=== PATIENT | male | born 1970 | race Caucasian/White ===

== ENCOUNTER 2016-04-11 01:04 | Emergency (ER) | payer SELFPAY ==
[2016-04-11 01:13] VITALS: TEMP 98.3; BMI 27.0
[2016-04-11] MEDS ORDERED: NS 1,000 ML IV ONE (01:17)
[2016-04-11] MEDS ORDERED: DEXTROSE 25 GM/50 ML PFS IV PRN (01:17)
[2016-04-11] MEDS ORDERED: GLUCAGON 1 MG VIAL SQ PRN (01:17)
[2016-04-11] MEDS ORDERED: GLUCOSE (ORAL GEL) 15 GM TUBE PO PRN (01:17)
--- NOTE | 2016-04-11 01:22 | EDPRACDOC ---
- General Information Chief Complaint: Chest Pain Stated Complaint: CHEST PAIN Time Seen by Provider: 04/11/16 01:07 Information Source: Patient Mode of Arrival: Ambulance Home Medications: Home Medications No Home Medications 04/11/16 Allergies/Adverse Reactions: Allergies Allergy/AdvReac Type Severity Reaction Status Date / Time No Known Allergies Allergy Verified 04/11/16 02:18 - History of Present Illness Onset: 1.5 weeks ago Chest Wall Injury Location: Reports: Front Context: Reports: Fall Pain Quality: Reports: Sharp Pain Severity: Reports: Moderate Pain Worsens With: Reports: Nothing Shortness of Breath: Mild Associated Signs and Symptoms: Reports: Other (shoulder injury). Denies: Abrasion, Laceration, Abdominal Pain Other History: pt is heavily intoxicated. ED Past Medical History - History Reviewed Yes Nurses notes reviewed and agree except as marked - Patient Medical History Cardiac History: Reports: Hypertension Respiratory History: Reports: COPD Psychological History: Denies: Depression Systemic History: Reports: Diabetes - Social Medical History Smoking Status: Heavy tobacco smoker (5 or more cigarettes/day or daily pipe/ cigar) EDM Review of Systems - Review of Systems ROS Unobtainable: Yes Review of systems cannot be obtained due to the patient's medical condition (intoxication) - Physical Exam Constitutional: Decreased Consciousness, ETOH Oriented to: Person Last recorded Vital Signs: Last Vital Signs Temp 98.3 F 04/11/16 01:09 Pulse 114 04/11/16 01:14 Resp 20 04/11/16 01:14 BP 120/70 04/11/16 01:09 Pulse Ox 92 04/11/16 01:13 Oxygen Pulse Oxygen Saturation 92 O2 Device Nasal Cannula Oxygen Flow Rate 2 Fraction of Inspired Oxygen ( FIO2) - HEENT Head: Normal. negative: Abrasion, Deformity, Laceration Eye Exam: Normal TMJ: Normal Nose: No Symptoms Reported Neck: negative: Bony Tenderness, Crepitus, In Collar, Step off - Respiratory/Cardiovascular Respiratory: Normal - CTA Cardiovascular: Tachycardia - GI Auscultation: Normal Palpation: Normal Tenderness: Non tender - Musculoskeletal Back: negative: Thoracic Step-off, Lumbar Step-off, No Palpable Step-off Extremities: Radial Pulse (nl), Other (no exts deformity) - Integumentary Skin: Warm, Dry - Neurologic Motor Function: Normal Cranial Nerve: Normal Mood Description: Flat Thought: negative: Delusions, Paranoia - Re-evaluation Re-evaluation 1 Re-evaluation Time: 03:20 (trp is neg as is ct chest. pt has cp assoc w fall. strongly doubt acs.) Re-evaluation 2 Re-evaluation Time: 03:24 (pt awakens easily to voice stimuli. has slurred speech.) Re-evaluation 3 Re-evaluation Time: 06:18 (pt still has slurred speech, but will be given safe ride home via police.) - Results 04/11/16 01:20 04/11/16 01:20 - EKG EKG #1 -: Yes EKG interpreted by me [place]: LAD Rhythm: ST Block: None ST: Normal - Diagnostic Imaging Chest Image interpreted by: Radiologist (cxr and cta chest neg for pe, aorta dissection.no ptx.) Shoulder Image interpreted by: Radiologist (neg) Decision Time to Discharge: 06:18 - Departure Yes I personally saw and evaluated the patient. Disposition: Home Condition: Stable Final Diagnosis: Contusion, shoulder /upper arm, Alcohol intoxication Contusion, chest wall Qualifiers: Encounter type: initial encounter Laterality: unspecified laterality Qualified Code(s): S20.219A - Contusion of unspecified front wall of thorax, initial encounter Instructions: Chest Wall Pain, Chest Pain (ED), Contusion in Adults (ED), Rib Contusion (ED), Alcohol Intoxication (ED) Education/Counseling Given To: Patient Education/Counseling Given Regarding: Diagnosis, Treatment, Follow Up Referrals: None,No Provider [Primary Care Provider] - One Week Chirag Rahman MD [Staff Physician] - Call for Appointment (make the first available appointment.)
[2016-04-11 01:33] LABS: AUTOMATED BASOPHIL 1.4 % (0-2); AUTOMATED EOSINOPHIL 1.1 % (0-5); AUTOMATED LYMPH 24.9 % (17-44); AUTOMATED MONOCYTE 11.6 % (3-10); MPV 7.6 fL (7.4-10.4)
[2016-04-11 01:41] LABS: PARTIAL THROMB. TIME 22.9 SEC (22-35)
[2016-04-11 01:42] LABS: BLOOD UREA NITROGEN 3 MG/DL (9-20); CALCIUM 8.7 MG/DL (8.4-10.2); CALCULATED OSMOLALITY 265 MOs/Kg (270-290); CHLORIDE 98 mEq/L (98-107); GLUCOSE 102 MG/DL (70-99); SODIUM LEVEL 139 mEq/L (137-146); TOTAL PROTEIN 8.1 G/DL (6.3-8.2)
--- NOTE | 2016-04-11 01:47 | DIRPT ---
CLINICAL DATA: Chest pain. EXAM: CHEST 2 VIEW COMPARISON: 03/28/2010 FINDINGS: The cardiomediastinal contours are normal. The lungs are clear. Pulmonary vasculature is normal. No consolidation, pleural effusion, or pneumothorax. No acute osseous abnormalities are seen. IMPRESSION: No acute pulmonary process. Electronically Signed By: Ivanna Ceja M.D. On: 04/11/2016 01:44
--- NOTE | 2016-04-11 01:48 | DIRPT ---
CLINICAL DATA: Status post fall several days ago, with right shoulder pain. Initial encounter. EXAM: RIGHT SHOULDER - 2+ VIEW COMPARISON: Chest radiograph performed 01/26/2010 FINDINGS: There is no evidence of fracture or dislocation. The right humeral head is seated within the glenoid fossa. The acromioclavicular joint is unremarkable in appearance. No significant soft tissue abnormalities are seen. The visualized portions of the right lung are clear. IMPRESSION: No evidence of fracture or dislocation. Electronically Signed By: Matt Rai M.D. On: 04/11/2016 01:45
[2016-04-11] MEDS ORDERED: THIAMINE 100 MG in NS 100 ML IV ONE (02:00)
[2016-04-11] MEDS ORDERED: Pharmacy Review for Metformin - IV Contrast Given SCH (02:00)
--- NOTE | 2016-04-11 02:27 | DIRPT ---
CLINICAL DATA: Mid chest pain and shortness of breath. Back pain tonight. History recent fall. Hypoxia. EXAM: CT ANGIOGRAPHY CHEST WITH CONTRAST TECHNIQUE: Multidetector CT imaging of the chest was performed using the standard protocol during bolus administration of intravenous contrast. Multiplanar CT image reconstructions and MIPs were obtained to evaluate the vascular anatomy. CONTRAST: 80 mL Isovue 370 IV COMPARISON: Radiographs earlier this day. FINDINGS: There are no filling defects within the pulmonary arteries to suggest pulmonary embolus. Thoracic aorta is normal in caliber without dissection. No aneurysm. Conventional branching pattern from the aortic arch. No pleural or pericardial effusion. No mediastinal or hilar adenopathy. Esophagus is fluid-filled throughout its course. Mild apical predominant emphysema. Central bronchial thickening. No consolidation, pulmonary mass or dominant nodule. Evaluation of the upper abdomen demonstrates diffusely decreased density of the liver parenchyma consistent with steatosis. Stomach distended with ingested contents. There are no acute or suspicious osseous abnormalities. No rib fracture. Small bone islands scattered throughout the left ribs. Review of the MIP images confirms the above findings. IMPRESSION: 1. No pulmonary embolus. 2. Diffuse bronchial thickening, may be acute or chronic. Mild apical predominant emphysema. 3. Fluid-filled esophagus, recommend correlation for esophagitis. 4. Incidental note of hepatic steatosis in the upper abdomen. Electronically Signed By: Ivanna Ceja M.D. On: 04/11/2016 02:25
[2016-04-11] MEDS ORDERED: KETOROLAC TROMETH 30 MG/ML VIAL IV ONE (03:24)
[2016-04-11 06:16] VITALS: BP 135/75; PULSE 81
== END 2016-04-11 06:34 | disposition home or self-care (01) ==
LOC: ED 01:04
DX: S40.011A Contusion of right shoulder, initial encounter (principal); S20.219A Contusion of unspecified front wall of thorax, initial encounter; W19.XXXA Unspecified fall, initial encounter; F10.129 Alcohol abuse with intoxication, unspecified; I10 Essential (primary) hypertension; J44.9 Chronic obstructive pulmonary disease, unspecified; E11.9 Type 2 diabetes mellitus without complications; F17.200 Nicotine dependence, unspecified, uncomplicated
CPT/HCPCS: 36415; 71020; 71275; 73030; 80053; 80320; 82962; 84484; 85025; 85610; 85730; 96361; 96365; 96375; 99285; A9698; J1885; J3411; J7030